=== PATIENT | male | born 1955 | race Two or more races ===

== ENCOUNTER 2023-12-03 13:52 | Emergency (ER) | payer OTHER ==
[~2023-12-03] VITALS: Ht 160 cm; Wt 64.4 kg
[2023-12-03 14:04] VITALS: TEMP 98.5
[2023-12-03] MEDS ORDERED: LIDOCAINE HCL/MPF 1% 30 ML VIAL IJ ONE (14:22)
[2023-12-03] MEDS ORDERED: TDAP [DIPH/PERTUSSIS/TET] 0.5 ML VIAL IM ONE (14:36)
[2023-12-03] MEDS: TDAP [DIPH/PERTUSSIS/TET] 0.5 ML VIAL IM ONE (14:40)
[2023-12-03] MEDS: BACI/NEOM/POLY B OINT PKT 1 UDPKT PACKET TP ONE (14:44)
[2023-12-03] MEDS ORDERED: BACI/NEOM/POLY B OINT PKT 1 UDPKT PACKET ONE (14:44)
[2023-12-03] MEDS ORDERED: IBUP-1955 PO (15:54)
[2023-12-03 16:16] VITALS: BP 130/85; O2SAT 100
== END 2023-12-03 16:16 | disposition home or self-care (01) ==
LOC: ER 14:38
DX: S61.221A Laceration with foreign body of left index finger without damage to nail, initial encounter (principal); F19.10 Other psychoactive substance abuse, uncomplicated; Z86.61 Personal history of infections of the central nervous system; W26.8XXA Contact with other sharp object(s), not elsewhere classified, initial encounter; Y93.89 Activity, other specified; Y92.89 Other specified places as the place of occurrence of the external cause; Y99.8 Other external cause status
CPT/HCPCS: 99284; 12041; 90471; 90715; 73140; J3490